=== PATIENT | female | born 1960 | race Caucasian/White ===

== ENCOUNTER 2016-08-05 18:07 | Inpatient (IN) | payer BC ==
--- NOTE | ~2016-08-05 | HP ---
Unit #: [id number] #: [id number] Patient: TONJA PEREZ [id number] [address] [address] [id number] I MR#: [id number] NAME: TONJA PEREZ ROOM: 464 Age: 55 Sex: F Admission Date: 08/06/2016 : 1960 Attending Physician: Alexandru Walton M.D. Primary Care Physician: Minh Cole M.D. HISTORY AND PHYSICAL CHIEF COMPLAINT Right hip pain. HISTORY OF PRESENT ILLNESS Ms. Perez is a 55-year-old female who had a right total hip arthroplasty approximately six weeks ago by my partner, Dr. Whitney. The patient is on Coumadin chronically for lupus. The patient reports that she may have bumped her hip over the weekend on a table and developed some pain and swelling over the anterior aspect of the thigh. She was seen in our office on Wednesday and pain medication adjusted. Over the past three days, she developed significant increase in swelling and pain. She came to the emergency room due to increased thigh swelling. CAT scan performed in the emergency room revealed large hematoma in the right thigh. This measured 14.5 cm x 8.1 cm. She also had an INR of 6.0. She was given vitamin K protocol. She was admitted for further management. The patient notes pain in the thigh and back area. No prior problems like this. Symptoms were worse with motion, better with rest. PAST MEDICAL HISTORY IBS, degenerative disc disease, depression, hypercholesterolemia, lupus. PAST SURGICAL HISTORY Low back surgery, hysterectomy, breast biopsy, right foot surgery, right hip replacement. SOCIAL HISTORY The patient smokes a half pack of cigarettes a day. The patient does not drink alcohol or use drugs. FAMILY HISTORY Noncontributory. ALLERGIES Sulfa, codeine, NSAIDs. HOME MEDICATIONS 1. Cymbalta. 2. Coumadin. 3. Zocor. 4. [place]. REVIEW OF SYSTEMS No other pertinent positives or negatives noted other than what is mentioned in the HPI. Unit #: [id number] #: [id number] Patient: TONJA PEREZ PHYSICAL EXAMINATION GENERAL APPEARANCE: The patient is alert and oriented for examination. No acute distress. VITAL SIGNS: Temperature 98.2 degrees Fahrenheit. Pulse 94. Respiratory rate 18. Blood pressure 128/60. Oxygen saturation 97% on room air. HEENT: Head is atraumatic, normocephalic. Extraocular movements intact. Mucous membranes moist. Cervical spine midline. No JVD. Pulse regular rate and rhythm. ABDOMEN: Soft, nontender, nondistended. Breathing nonlabored and chest rise symmetric. EXTREMITIES; No clubbing, cyanosis or edema of the extremities. No skin lesions. All extremities are warm and well perfused. Focused orthopaedic exam of the right lower extremity reveals moderate thigh swelling. There is a well-healed scar over the anterior thigh. There is tenderness to palpation with prominence over the anterior thigh. No erythema. No wound drainage. DIAGNOSTIC STUDIES LABORATORY: WBC count 8.2, hemoglobin 9.1, hematocrit 27.4, platelets 227. INR 6.0. BMP with a sodium of 132, chloride 96, BUN 8, creatinine 0.5, glucose 139. IMAGING: CT scan of the right hip reveals an 8 x 14 cm hematoma over the anterior aspect of the hip. IMPRESSION A 55-year-old female with history of right total hip arthroplasty and thigh hematoma. PLAN We will work to correct the INR. She has already received vitamin K. We will order a STAT INR. We will give her two units of plasma and either re-dose the vitamin K or plasma. We will make her n.p.o. after midnight except for a clear liquid breakfast. We will likely plan for I and D tomorrow of the hematoma. The plan was discussed with the patient. She agreed. Further recommendations will follow. Dictated by Wyatt Ibarra/crystal TD: 08/06/2016 13:13 JOB #: [id number] HISTORY AND PHYSICAL Page 1 of 1 X X HISTORY AND PHYSICAL
--- NOTE | ~2016-08-05 | CT93 ---
[facility] A Service of [facility] RADIOLOGY TEXT RESULTS PATIENT: TONJA PEREZ LOCATION: C4 464-01 : [birth year] UNIT #: [id number] AGE: [address]: Alexandru Walton MD SEX: F ORDER DR: [id number] [id number] [place], [place] [address] [id number] I MR#: [id number] Acc #: [id number] NAME: TONJA PEREZ : 1960 SEX: F STUDY DATE/TIME: 08/05/2016 20:21 UNIT: CEDOF ROOM: 36817 STUDY DESCRIPTION: CT Lower Ext Rt W Cont Attending Physician: Alexandru Walton M.D. Ordering Physician: Kerry Bah Pa-C Primary Care Physician: Minh Cole M.D. MEDICAL IMAGING REPORT This report is preliminary unless electronic signature is present EXAM Right hip CT with contrast. INDICATION Right hip pain and swelling and palpable knot. Patient is 6 weeks status post right hip replacement. Palpable swelling and knot noted on Wednesday. PROCEDURE Contrast-enhanced CT of the pelvis with attention on the right hip. This CT exam was performed with one or more of the following radiation dose reduction techniques: automatic exposure control, adjustment of mA and/or kV according to patient size, and iterative reconstruction. COMPARISON None. FINDINGS Right hip prosthesis in place appropriately positioned. No evidence for fracture. There is a large hematoma surrounding the right hip, both anterior and posterior to the hip joint. Overall it measures approximately 14.5 cm x 8.1 cm. There is asymmetric generalized soft tissue edema or prominence in the right hip versus the left. IMPRESSION 1. Previous right hip replacement. 2. Large hematoma surrounding the right hip joint as detailed above. 3. Not mentioned above there is severe left hip arthrosis. Dictated by... Juan David Caraballo M.D. [facility] A Service of [facility] RADIOLOGY TEXT RESULTS PATIENT: TONJA PEREZ LOCATION: [facility] 464-01 : [birth year] UNIT #: [id number] AGE: [address]: Alexandru Walton MD SEX: F ORDER DR: THIS IS AN ELECTRONICALLY VERIFIED REPORT Juan David Caraballo M.D. at 08/10/2016 7:30 AM KATIE/jin TD: 08/06/2016 01:49 JOB #: [id number] MEDICAL IMAGING REPORT Page 1 of 1 COPY
--- NOTE | ~2016-08-05 | OR ---
Unit #: [id number] #: [id number] Patient: TONJA PEREZ [id number] [address] [address] [id number] I MR#: [id number] NAME: TONJA PEREZ ROOM: 464 Date of Procedure: 08/07/2016 Admission Date: 08/06/2016 Surgeon: Alexandru Walton M.D. : 1960 Attending Physician: Alexandru Walton M.D. Primary Care Physician: Minh Cole M.D. OPERATIVE REPORT PREOPERATIVE DIAGNOSIS Right total hip hematoma. POSTOPERATIVE DIAGNOSIS Right total hip hematoma. PROCEDURE PERFORMED Right total hip evacuation of hematoma. 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 ANESTHESIA General with LMA. COMPLICATIONS None. SPECIMENS None. DRAINS Medium Hemovac. SURGICAL IMPLANTS None. INDICATIONS FOR PROCEDURE Ms. Perez is a 55-year-old female, about 6 weeks out from a right total hip arthroplasty. She had done great with surgery. However, earlier in the week she bumped her hip on the table. Her INR had dontrell to 6.0 and she developed a very large anterior hematoma and was unable to bear weight. CT scan revealed an 8 x 14 cm hematoma. She continued to have increasing pain. INR was corrected. Based on the size of the hematoma, it was felt she would benefit from evacuation for pain relief and [employer] of mobility. Risks and benefits of surgery were discussed with the patient. Informed consent was obtained. Risks include, but not limited to, infection, bleeding, nerve injury, blood clots, risks associated with anesthesia, need for further surgery, and possibly . DESCRIPTION OF PROCEDURE On 08/07/2016, the patient was seen in the preoperative holding area, Unit #: [id number] #: [id number] Patient: TONJA PEREZ where her surgical site was marked. Preoperative antibiotics were received. H and P and consent updated. She was taken to the operating room and provided general anesthesia. Right anterior hip and leg were prepped and draped in typical sterile fashion. Time-out was performed confirming the correct surgical site and procedure. The prior surgical scar was then incised. This was an anterior approach to the right hip. The overlying fascia was carefully incised over the anterior interval muscle bellies. Blunt dissection was performed and a large blush of old blood noted. Suction was then used to evacuate majority of the hematoma. There were some thicker clotted off hematoma that was evacuated manually. Once this was fully decompressed, it was thoroughly irrigated with 3 L of normal saline containing bacitracin. Hemostasis was noted. It was felt a deep drain would reduce chance of recurrence. This was placed and exited just distal to the surgical incision. The interval was then closed with 0 Vicryl suture followed by 2-0 Vicryl for subcutaneous tissues and a 3-0 running subcuticular Monocryl stitch. Dermabond, Telfa, and Tegaderm were placed. The patient was subsequently awakened from general anesthesia in stable condition and taken to PACU postoperatively. POSTOPERATIVE PLAN The patient will remain on standard 24-hour antibiotic protocol. She will have SCDs. We will hold on Coumadin. We will monitor drain output and hemoglobin. The patient can be weightbearing as tolerated with physical therapy. There were no complications encountered during the surgical procedure. Dictated by... Wyatt Ibarra/ursula TD: 08/08/2016 03:45 JOB #: [id number] OPERATIVE REPORT Page 1 of 1 X X PROCEDURE OPERATIVE NOTE
--- NOTE | ~2016-08-05 | DS ---
Unit #: [id number] #: [id number] Patient: TONJA PEREZ [id number] [address] [place], [place] [address] [id number] I MR#: [id number] NAME: TONJA PEREZ ROOM: 46 Age: 55 Sex: F Admission Date: 08/06/2016 : 1960 Discharge Date: 08/09/2016 Attending Physician: Alexandru Walton M.D. Primary Care Physician: Minh Cole M.D. DISCHARGE SUMMARY DISCHARGE DIAGNOSIS Right total hip arthroplasty hematoma. PROCEDURES PERFORMED Evacuation of right hip hematoma, 08/07/2016. DISCHARGE MEDICATIONS 1. The patient will restart all of her home medications including Coumadin. She will restart her Coumadin on 08/10/2016. Coumadin has been held due to bleeding risk and Coumadin toxicity. 2. Percocet 7.5/325 mg 1-2 tablets p.o. q.4 h. p.r.n. pain. HOSPITAL COURSE Ms. Perez was admitted to the hospital on 08/06/2016 with expanding right thigh hematoma that was noted on CAT scan. She also had Coumadin toxicity with an INR of 6.0. This was corrected in the emergency room. She had severe pain associated with the thigh and so she would benefit from evacuation of the hematoma. The risks and benefits were discussed and surgery proceeded. She tolerated surgery well. A drain was placed postoperatively. On postoperative day two, the drain was putting out less than 50 mL per shift. It was felt stable to be removed. Her hemoglobin is pending this morning, 08/09/2016. If this is stable she will be discharged to home. DISPOSITION Home. DISCHARGE INSTRUCTIONS 1. The patient will restart her Coumadin tomorrow. 2. She will follow up with Dr. Garcia in the office in 7-10 days. 3. She can weight bear as tolerated, but will limit her activities. 4. She will apply ice packs to the right hip and keep compression on it. 5. She will call the office with any questions or concerns. Dictated by... Alexandru Walton M.D. DENNY/fabio TD: 08/09/2016 07:59 JOB #: [id number] CC: Alexandru Walton M.D. Unit #: [id number] #: [id number] Patient: TONJA PEREZ DISCHARGE SUMMARY Page 1 of 1 X X DISCHARGE SUMMARY
[~2016-08-05 18:07] MED LIST: COUMADIN2.5 MG PO; COUMADIN5 MG PO; CYMBALTA PO; MEDROL DOSEPAK4 MG PO; ULTRAM PO; VICODIN 5/1 TAB 5/50 PO; ZOCOR20 MG PO
[2016-08-05 18:49] LABS: BASOPHIL# 0.1 X10e3 (0-0.3); BASOPHIL% 0.8 % (0-2.5); EOSINOPHIL# 0.1 X10e3 (0-0.7); EOSINOPHIL% 1.4 % (0.0-7.0); HEMATOCRIT 32.3 % (35.0-45.0); HEMOGLOBIN 10.4 gm/dL (12.0-16.0); LYMPHOCYTE# 1.1 X10e3 (1.0-3.5); LYMPHOCYTE% 15.8 % (17.0-45.0); MEAN CELL VOLUME 90.8 FL (83-96); MEAN CORPUSCULAR HEMOGLOBIN 29.2 PG (28-34); MEAN CORPUSCULAR HGB CONC 32.2 g/dL (30-36); MEAN PLATELET VOLUME 8.1 FL (6.5-11.5); MONOCYTE# 0.5 X10e3 (0-1.0); MONOCYTE% 6.6 % (3.0-12.0); NEUTROPHIL# 5.4 X10e3 (1.5-7.1); NEUTROPHIL% 75.4 % (40-75); PLATELET COUNT 233 X10e3 (140-420); RED BLOOD COUNT 3.56 X10e (3.90-5.30); RED CELL DISTRIBUTION WIDTH 15.3 % (11.0-15.5); WHITE BLOOD COUNT 7.1 X10e3 (4.0-10.5)
[2016-08-05 18:52] LABS: DIFF IND NO
[2016-08-05 19:13] LABS: BUN/CREATININE RATIO 14.28; CALCIUM SERUM 8.6 mg/dL (8.4-10.2); CREATININE SERUM 0.7 mg/dL (0.6-1.4); GLOM FILT RATE Estimated 98.2 mL/min (>60); POTASSIUM 4.4 mmol/L (3.5-5.1)
[2016-08-05 19:18] LABS: PROTHROMBIN TIME (PATIENT) 67.6 SECONDS (9.6-11.5)
[2016-08-05 19:21] LABS: PARTIAL THROMBOPLASTIN TIME 84.7 SECONDS (23.5-31.3)
[2016-08-05 22:46] LABS: BASOPHIL% 0.5 % (0-2.5); EOSINOPHIL# 0.1 X10e3 (0-0.7); EOSINOPHIL% 1.1 % (0.0-7.0); HEMATOCRIT 30.4 % (35.0-45.0); LYMPHOCYTE# 1.6 X10e3 (1.0-3.5); LYMPHOCYTE% 21.4 % (17.0-45.0); MEAN CELL VOLUME 90.4 FL (83-96); MEAN CORPUSCULAR HEMOGLOBIN 29.7 PG (28-34); MEAN CORPUSCULAR HGB CONC 32.9 g/dL (30-36); MEAN PLATELET VOLUME 8.7 FL (6.5-11.5); MONOCYTE# 0.5 X10e3 (0-1.0); MONOCYTE% 7.4 % (3.0-12.0); NEUTROPHIL# 5.1 X10e3 (1.5-7.1); NEUTROPHIL% 69.6 % (40-75); PLATELET COUNT 222 X10e3 (140-420); RED BLOOD COUNT 3.37 X10e (3.90-5.30); RED CELL DISTRIBUTION WIDTH 15.1 % (11.0-15.5); WHITE BLOOD COUNT 7.4 X10e3 (4.0-10.5)
[2016-08-05 22:47] LABS: DIFF IND NO
[2016-08-06 08:24] LABS: BASOPHIL% 0.6 % (0-2.5); EOSINOPHIL# 0.1 X10e3 (0-0.7); EOSINOPHIL% 1.7 % (0.0-7.0); HEMATOCRIT 27.4 % (35.0-45.0); HEMOGLOBIN 9.1 gm/dL (12.0-16.0); LYMPHOCYTE# 1.9 X10e3 (1.0-3.5); LYMPHOCYTE% 23.6 % (17.0-45.0); MEAN CELL VOLUME 89.3 FL (83-96); MEAN CORPUSCULAR HEMOGLOBIN 29.7 PG (28-34); MEAN CORPUSCULAR HGB CONC 33.3 g/dL (30-36); MEAN PLATELET VOLUME 8.1 FL (6.5-11.5); MONOCYTE# 0.6 X10e3 (0-1.0); MONOCYTE% 7.6 % (3.0-12.0); NEUTROPHIL# 5.5 X10e3 (1.5-7.1); NEUTROPHIL% 66.5 % (40-75); PLATELET COUNT 227 X10e3 (140-420); RED BLOOD COUNT 3.07 X10e (3.90-5.30); RED CELL DISTRIBUTION WIDTH 15.1 % (11.0-15.5); WHITE BLOOD COUNT 8.2 X10e3 (4.0-10.5)
[2016-08-06 08:40] LABS: DIFF IND NO
[2016-08-06 08:49] LABS: CALCIUM SERUM 8.4 mg/dL (8.4-10.2); CREATININE SERUM 0.5 mg/dL (0.6-1.4); GLOM FILT RATE Estimated 109.7 mL/min (>60); POTASSIUM 3.7 mmol/L (3.5-5.1)
[2016-08-06 14:14] LABS: INR 1.1
[2016-08-06 14:18] LABS: PROTHROMBIN TIME (PATIENT) 11.8 SECONDS (9.6-11.5)
[2016-08-06 16:03] LABS: INR 1.1; PROTHROMBIN TIME (PATIENT) 11.6 SECONDS (9.6-11.5)
[2016-08-07 03:10] LABS: HEMATOCRIT 25.8 % (35.0-45.0); HEMOGLOBIN 8.6 gm/dL (12.0-16.0); MEAN CELL VOLUME 89.4 FL (83-96); MEAN CORPUSCULAR HEMOGLOBIN 29.9 PG (28-34); MEAN CORPUSCULAR HGB CONC 33.4 g/dL (30-36); MEAN PLATELET VOLUME 8.1 FL (6.5-11.5); RED BLOOD COUNT 2.88 X10e (3.90-5.30); RED CELL DISTRIBUTION WIDTH 14.9 % (11.0-15.5)
[2016-08-07 04:00] LABS: PROTHROMBIN TIME (PATIENT) 10.8 SECONDS (9.6-11.5)
[2016-08-07 04:05] LABS: CALCIUM SERUM 8.4 mg/dL (8.4-10.2); CREATININE SERUM 0.5 mg/dL (0.6-1.4); GLOM FILT RATE Estimated 109.7 mL/min (>60); POTASSIUM 3.9 mmol/L (3.5-5.1)
[2016-08-08 03:27] LABS: BASOPHIL% 0.4 % (0-2.5); EOSINOPHIL% 0.1 % (0.0-7.0); HEMATOCRIT 24.3 % (35.0-45.0); HEMOGLOBIN 8.1 gm/dL (12.0-16.0); LYMPHOCYTE# 0.7 X10e3 (1.0-3.5); LYMPHOCYTE% 11.2 % (17.0-45.0); MEAN CELL VOLUME 90.1 FL (83-96); MEAN CORPUSCULAR HEMOGLOBIN 29.8 PG (28-34); MEAN CORPUSCULAR HGB CONC 33.1 g/dL (30-36); MEAN PLATELET VOLUME 8.5 FL (6.5-11.5); MONOCYTE# 0.2 X10e3 (0-1.0); MONOCYTE% 3.4 % (3.0-12.0); NEUTROPHIL# 5.3 X10e3 (1.5-7.1); NEUTROPHIL% 84.9 % (40-75); PLATELET COUNT 263 X10e3 (140-420); RED CELL DISTRIBUTION WIDTH 14.7 % (11.0-15.5); WHITE BLOOD COUNT 6.2 X10e3 (4.0-10.5)
[2016-08-08 03:30] LABS: DIFF IND NO
[2016-08-08 03:39] LABS: PROTHROMBIN TIME (PATIENT) 10.4 SECONDS (9.6-11.5)
[2016-08-08 03:42] LABS: BUN/CREATININE RATIO 13.33; CALCIUM SERUM 8.2 mg/dL (8.4-10.2); CREATININE SERUM 0.6 mg/dL (0.6-1.4); GLOM FILT RATE Estimated 103.3 mL/min (>60); POTASSIUM 4.3 mmol/L (3.5-5.1)
[2016-08-09 08:04] LABS: HEMATOCRIT 23.8 % (35.0-45.0); HEMOGLOBIN 7.8 gm/dL (12.0-16.0)
[2016-08-09] MEDS ORDERED: PERCOCET 7.5-31 EACH PO (08:36)
== END 2016-08-09 13:45 | disposition home or self-care (01) | DRG 908 ==
LOC: CED 18:07 → CEDOF 08-06 00:10 → C4C 08-06 09:10
PROVIDERS: Orthopaedic Surgery; Physician Assistant; Physician Assistant Medical
PROC: 0S9930Z Drainage of Right Hip Joint with Drainage Device, Percutaneous Approach (ICD-10-PCS; 2016-08-07)
PROC: 0SC90ZZ Extirpation of Matter from Right Hip Joint, Open Approach (ICD-10-PCS; principal; 2016-08-07 16:30)
DX: M96.840 Postprocedural hematoma of a musculoskeletal structure following a musculoskeletal system procedure (principal); D68.62 Lupus anticoagulant syndrome; Y83.8 Other surgical procedures as the cause of abnormal reaction of the patient, or of later complication, without mention of misadventure at the time of the procedure; Y79.1 Therapeutic (nonsurgical) and rehabilitative orthopedic devices associated with adverse incidents; T45.515A Adverse effect of anticoagulants, initial encounter; Y92.009 Unspecified place in unspecified non-institutional (private) residence as the place of occurrence of the external cause; F32.9 Major depressive disorder, single episode, unspecified; E78.00 Pure hypercholesterolemia, unspecified; K58.9 Irritable bowel syndrome, unspecified; Z90.710 Acquired absence of both cervix and uterus; Z96.641 Presence of right artificial hip joint; F17.210 Nicotine dependence, cigarettes, uncomplicated; Z88.6 Allergy status to analgesic agent; Z88.5 Allergy status to narcotic agent; Z88.2 Allergy status to sulfonamides
CPT/HCPCS: 73701; 80048; 85014; 85018; 85025; 85027; 85610; 85730; 86900; 86901; 96365; 96375; 96376; 97110; 97162; 97166; 99291; J0690; J1100; J1170; J2250; J2370; J2405; J3010; J3430; Q9967

== ENCOUNTER → 2016-08-10 | Outpatient (CLI) | payer BC ==
[~2016-08-10] MED LIST changes: +PERCOCET 7.5-31 EACH PO
[2016-08-10 13:33] LABS: HEMATOCRIT 25.9 % (35.0-45.0); HEMOGLOBIN 8.4 gm/dL (12.0-16.0)
== END | disposition home or self-care (01) ==
LOC: CLAB 12:47
PROVIDERS: Specialist
DX: R89.9 Unspecified abnormal finding in specimens from other organs, systems and tissues (principal)
CPT/HCPCS: 36415; 85014; 85018

== ENCOUNTER 2016-12-30 22:20 | Emergency (ER) | payer BC | END 2016-12-31 00:35 | disposition home or self-care (01) | LOC: CFTX 22:20 → CED 22:20 → CFTX 23:55 | DX: M54.6 Pain in thoracic spine (principal); F32.9 Major depressive disorder, single episode, unspecified; E78.5 Hyperlipidemia, unspecified; I10 Essential (primary) hypertension; Z90.710 Acquired absence of both cervix and uterus; F17.200 Nicotine dependence, unspecified, uncomplicated; Z88.2 Allergy status to sulfonamides; Z88.8 Allergy status to other drugs, medicaments and biological substances; Z88.5 Allergy status to narcotic agent | CPT/HCPCS: 99283 ==

== ENCOUNTER → 2017-01-06 | Outpatient (CLI) | payer BC ==
--- NOTE | ~2017-01-06 | EKG ---
PATIENT: TONJA PEREZ UNIT #: [id number] Ventricular Rate: 75 BPM Atrial Rate: 75 BPM P-R Interval: 190 ms QRS Duration: 82 ms Q-T Interval: 402 ms QTC Calculation(Bezet): 448 ms P Lindsay: 8 degrees Calculated R Lindsay: 82 degrees Calculated T Lindsay: 39 degrees Diagnosis Line: Normal sinus rhythm Diagnosis Line: Normal ECG Diagnosis Line: Diagnosis Line: Confirmed by TAMMY CASSIDY MD ([id number]) on Diagnosis Line: 01/08/2017 10:49:36 AM INTERPRETING MD: KHANH CHRISTOPHER
--- NOTE | ~2017-01-06 | CR63 ---
[facility] A Service of [facility] RADIOLOGY TEXT RESULTS PATIENT: TONJA PEREZ LOCATION: [facility] : [birth year] UNIT #: [id number] AGE: [address]: Neymar Whitney MD SEX: F ORDER DR: [id number] [facility] [address] [facility]. [place], [place] [address] [id number] O MR#: [id number] Acc #: [id number] NAME: TONJA PEREZ : 1960 SEX: F STUDY DATE/TIME: 01/06/2017 10:13 UNIT: [facility] ROOM: STUDY DESCRIPTION: CR Chest 2 View Attending Physician: Neymar Whitney M.D. Referring Physician: Neymar Whitney M.D. Ordering Physician: Neymar Whitney M.D. Primary Care Physician: Minh Cole M.D. MEDICAL IMAGING REPORT This report is preliminary unless electronic signature is present EXAM Chest PA and lateral 01/06/2017 HISTORY Osteoarthritis left hip, preop left hip replacement. Benign essential hypertension and shortness of breath for 1 week. Smoking history, COPD. FINDINGS PA and lateral examination of the chest upright shows a good expansion of the parenchyma with a normal distribution of the pulmonary vascularity. There is no indication of congestion, effusion, infiltrate, tumor, or nodular density. The pleural reflections and diaphragmatic contours are normal. The cardiac silhouette and mediastinal anatomy is within normal limits. IMPRESSION Normal chest. Dictated by... Igor Lin M.D. THIS IS AN ELECTRONICALLY VERIFIED REPORT Igor Lin M.D. at 01/08/2017 7:45 AM JULISSA/roly TD: 01/06/2017 20:21 JOB #: [id number] MEDICAL IMAGING REPORT Page 1 of 1 COPY
[2017-01-06 10:14] LABS: HEMATOCRIT 43.8 % (35.0-45.0); HEMOGLOBIN 14.7 gm/dL (12.0-16.0); MEAN CELL VOLUME 88.9 FL (83-96); MEAN CORPUSCULAR HEMOGLOBIN 29.8 PG (28-34); MEAN CORPUSCULAR HGB CONC 33.5 g/dL (30-36); MEAN PLATELET VOLUME 7.7 FL (6.5-11.5); RED BLOOD COUNT 4.93 X10e (3.90-5.30); RED CELL DISTRIBUTION WIDTH 15.8 % (11.0-15.5); WHITE BLOOD COUNT 7.2 X10e3 (4.0-10.5)
[2017-01-06 10:16] LABS: URINE APPEARANCE CLEAR; URINE BILIRUBIN NEG (NEG); URINE BLOOD NEG (NEG); URINE COLOR YELLOW; URINE GLUCOSE NEG (NEG); URINE KETONE NEG (NEG); URINE LEUKOCYTE ESTERASE NEG (NEG); URINE NITRATE NEG (NEG); URINE PROTEIN NEG (NEG); URINE SPECIFIC GRAVITY 1.011 (1.003-1.035); URINE UROBILINOGEN 0.2 MG/DL (NEG)
[2017-01-06 10:19] LABS: URINE SOURCE CLEAN CATCH
[2017-01-06 10:20] LABS: CULTURE INDICATED? NO
[2017-01-06 10:40] LABS: BUN/CREATININE RATIO 16.25; CALCIUM SERUM 8.9 mg/dL (8.4-10.2); CREATININE SERUM 0.8 mg/dL (0.6-1.4); GLOM FILT RATE Estimated 83.1 mL/min (>60); POTASSIUM 4.7 mmol/L (3.5-5.1)
== END | disposition home or self-care (01) ==
LOC: CRAD 09:23 → CLAB 09:23
PROVIDERS: Specialist
DX: Z01.818 Encounter for other preprocedural examination (principal); M16.12 Unilateral primary osteoarthritis, left hip
CPT/HCPCS: 36415; 71020; 80048; 81003; 85027; 93005